=== PATIENT | female | born 1990 | race Asian ===

== ENCOUNTER 2019-01-25 16:47 | Emergency (ER) | payer OTHER ==
[~2019-01-25] VITALS: Ht 165.1 cm; Wt 59.1 kg
[2019-01-25] MEDS ORDERED: CRAN250T2 PO (16:57)
[2019-01-25 17:29] LABS: APPEARANCE,URINE CLOUDY (CLEAR); BILIRUBIN,URINE NEGATIVE (NEGATIVE); GLUCOSE, URINE (UA) NEGATIVE (NEGATIVE); KETONES,URINE NEGATIVE (NEGATIVE); LEUKOCYTE ESTERASE ,URINE MODERATE (NEGATIVE); NITRATE,URINE NEGATIVE (NEGATIVE); OCCULT BLOOD,URINE LARGE (NEGATIVE); PH,URINE 6.5 (5.0-8.0); PROTEIN,URINE TRACE (NEGATIVE); UROBILINOGEN,URINE 0.2 mg/dL (<=1.0)
[2019-01-25 17:37] LABS: WBC,URINE 51-100 /HPF (0-5)
[2019-01-25 17:39] LABS: BACTERIA,URINE Few /HPF (None Seen); RBC,URINE 0-2 /HPF (0-2); SQUAMOUS EPITHELIAL CELL,UR Rare /LPF (None Seen)
[2019-01-25 17:58] VITALS: BP 112/68
[2019-01-25] MEDS ORDERED: CEPHALEXIN MONOHYDRATE 500 MG CAPSULE PO ONE (18:00)
== END 2019-01-25 18:34 | disposition home or self-care (01) ==
LOC: EMS 16:48
DX: N39.0 Urinary tract infection, site not specified (principal); E78.00 Pure hypercholesterolemia, unspecified
CPT/HCPCS: 87086

== ENCOUNTER 2019-03-12 22:24 | Emergency (ER) | payer OTHER ==
[~2019-03-12 22:24] MED LIST: CRAN250T2 PO
== END 2019-03-13 00:21 | disposition left against medical advice (07) ==
LOC: EMS 22:26
DX: M54.9 Dorsalgia, unspecified (principal); Z53.21 Procedure and treatment not carried out due to patient leaving prior to being seen by health care provider

== ENCOUNTER 2019-06-20 10:45 | Emergency (ER) | payer OTHER ==
[~2019-06-20] VITALS: Ht 165.1 cm; Wt 59.1 kg
[2019-06-20] MEDS ORDERED: KETOROLAC TROMETHAMINE 10 MG TABLET PO ONE (11:30)
[2019-06-20 13:39] VITALS: BP 116/68
== END 2019-06-20 14:59 | disposition home or self-care (01) ==
LOC: EMS 10:51
DX: S92.355A Nondisplaced fracture of fifth metatarsal bone, left foot, initial encounter for closed fracture (principal); E78.00 Pure hypercholesterolemia, unspecified; X50.1XXA Overexertion from prolonged static or awkward postures, initial encounter; Y93.89 Activity, other specified; Y92.89 Other specified places as the place of occurrence of the external cause; Y99.8 Other external cause status